=== PATIENT | male | born 1955 | race Caucasian/White ===

== ENCOUNTER 2025-05-14 10:47 | Outpatient (CLI) | payer OTHER, MEDICARE ==
[2025-05-14 11:20] LABS: Estimated GFR - POC 91.0
== END 2025-05-14 10:48 | disposition home or self-care (01) ==
LOC: SCSMRI 10:47
PROVIDERS: ATTEND Urology
DX: C61 Malignant neoplasm of prostate (principal); N32.89 Other specified disorders of bladder
CPT/HCPCS: 36415; 72197; 82565

== ENCOUNTER 2025-05-28 07:08 | Observation (INO) | payer MEDICARE, OTHER ==
[2025-05-22 12:51] VITALS: BMI 32.8
[~2025-05-28 07:08] MED LIST: LevoFLOXacin 500 mg/D5W 500 MG in Premix 1 BAG IVPB SCH
[2025-05-28] MEDS ORDERED: LevoFLOXacin D5W 500 mg (100 mL) BAG ONE (08:08)
[2025-05-28] MEDS ORDERED: fentaNYL PF 100 MCG/2 ML SYRINGE ONE ×2 (09:34→12:15)
[2025-05-28] MEDS ORDERED: PROPOFOL 20 ML ONE (09:34)
[2025-05-28] MEDS ORDERED: Rocuronium Bromide 10 MG/ML (10ML VIAL) ONE (09:35)
[2025-05-28] MEDS ORDERED: Lidocaine 1% PF 5 ML VIAL ONE (09:35)
[2025-05-28] MEDS ORDERED: SUCCINYLCHOLINE/SOD CL,ISO/PF 200 MG/10 ML SYRINGE FS ONE (10:08)
[2025-05-28] MEDS ORDERED: Ondansetron PF 4 MG/2 ML Vial ONE (10:23)
[2025-05-28] MEDS ORDERED: Glycopyrrolate 0.2 MG/ML 5 ML SYRINGE ONE (11:26)
[2025-05-28] MEDS ORDERED: NEOSTIGMINE 3 MG/3 ML SYRINGE ONE (11:26)
[2025-05-28] MEDS ORDERED: diphenhydrAMINE 25 MG CAP PO PRN (15:37)
[2025-05-28] MEDS ORDERED: Ondansetron PF 4 MG/2 ML Vial IVP PRN (15:37)
[2025-05-28] MEDS ORDERED: hydrALAZINE 20 MG/ML VIAL SLOW IVP PRN (15:37)
[2025-05-28] MEDS ORDERED: Mag-Al 1200 mg/1200 mg/30 ML UDCUP PO PRN (15:37)
[2025-05-28] MEDS: Losartan 25 MG TAB PO SCH (20:17)
[2025-05-28] MEDS: Pantoprazole 40 MG DR.TAB PO SCH (20:17)
[2025-05-28] MEDS: Oxybutynin 5 MG TAB PO PRN (20:17)
[2025-05-29] MEDS: FLU (Fluad Triv) 25-26 (65UP)PF 45 MCG/0.5 ML Syringe IM ONE (01:42)
[2025-05-29] MEDS: cefTRIAXone\\ROCEPHIN 1 GM in Sodium Chloride 0.9% 100 ML IVPB SCH (09:07)
[2025-05-29] MEDS: Acetaminophen 500 MG TAB PO PRN (09:08)
[2025-05-29 11:17] LABS: #Basophils Less than 0.03 10x3/uL (0.0-0.2); #Eosinophils Less than 0.03 10x3/uL (0.0-0.7); #Monocytes 1.18 10x3/uL (0.11-0.59); #Neutrophils 13.30 10x3/uL (1.40-6.50); %Basophils 0.1 % (0.0-1.0); %Eosinophils 0.1 % (0.0-10.0); %Lymphocytes 7.4 % (21.0-51.0); %Monocytes 7.5 % (0.0-10.0); %Neutrophils 84.5 % (42.0-75.0); Hematocrit 40.5 % (42.0-52.0); Hemoglobin 13.2 g/dL (14.0-18.0); Mean Corpuscular Hemoglobin 29.3 pg (27.0-31.0); Mean Corpuscular Volume 89.8 fL (78.0-98.0); Platelet Count 208 10x3/uL (130-400); Red Blood Cell (RBC) Count 4.51 mill/uL (4.70-6.10); White Blood Cell (WBC) Count 15.74 10x3/uL (4.8-10.8)
[2025-05-29 11:41] LABS: Anion Gap 12 mmol/L (10-20); BUN (Urea Nitrogen) 19 mg/dL (8.4-25.7); Calc. Creatinine Clearance 92 mL/min (70-130); Calcium 8.7 mg/dL (7.8-10.44); Carbon Dioxide 27 mmol/L (23-31); Chloride 106 mmol/L (98-107); Glucose 129 mg/dL (83-110); Potassium 4.2 mmol/L (3.5-5.1); Sodium 141 mmol/L (136-145)
[2025-05-29] MEDS ORDERED: Iopamidol-370 76% 500 ML MDV (1 ML CHARGE) ONE (11:57)
[2025-05-29 13:28] VITALS: BP 140/72; TEMP 97.2
== END 2025-05-29 15:00 | disposition home or self-care (01) ==
LOC: SDC 07:08 → UNDOADMOB 16:36 → SURG B 16:36 → SURG A 16:36
PROVIDERS: ADMIT Urology; ATTEND Urology
PROC: 0TBB8ZZ Excision of Bladder, Via Natural or Artificial Opening Endoscopic (ICD-10-PCS; principal; 2025-05-28)
PROC: 0VB03ZX Excision of Prostate, Percutaneous Approach, Diagnostic (ICD-10-PCS; 2025-05-28)
DX: C61 Malignant neoplasm of prostate (principal); N40.1 Benign prostatic hyperplasia with lower urinary tract symptoms; R35.0 Frequency of micturition; N20.0 Calculus of kidney; I10 Essential (primary) hypertension; C68.9 Malignant neoplasm of urinary organ, unspecified; K64.4 Residual hemorrhoidal skin tags; Z96.641 Presence of right artificial hip joint; Z88.2 Allergy status to sulfonamides; Z79.899 Other long term (current) drug therapy
CPT/HCPCS: 52235; 55700; 74178; 76872; 80048; 85025; J0696; J1100; J1956; J2250; J2704; J3010; J9280; Q9967; 36415; 88305; 88307; 88344; G0416; J2405